=== PATIENT | female | born 1940 | race Caucasian/White ===

== ENCOUNTER 2024-12-15 10:05 | Outpatient (CLI) | payer MEDICARE, BC, SELFPAY | END 2024-12-15 10:06 | disposition home or self-care (01) | LOC: INJ CL 10:06 | PROVIDERS: PCP Family Medicine; Visit Provider Family Medicine | DX: M54.16 Radiculopathy, lumbar region (principal); M51.369 Other intervertebral disc degeneration, lumbar region without mention of lumbar back pain or lower extremity pain | CPT/HCPCS: 64483; J1100; J1644; J2003; Q9966 ==

== ENCOUNTER 2025-02-16 07:45 | Outpatient (CLI) | payer MEDICARE, BC, SELFPAY | END 2025-02-16 07:46 | disposition home or self-care (01) | PROVIDERS: PCP Family Medicine; Visit Provider Family Medicine | DX: M54.16 Radiculopathy, lumbar region (principal); M51.369 Other intervertebral disc degeneration, lumbar region without mention of lumbar back pain or lower extremity pain | CPT/HCPCS: 64483; Q9966 ==

== ENCOUNTER 2025-03-26 10:13 | Outpatient (CLI) | payer MEDICARE, BC, SELFPAY ==
--- NOTE | 2025-03-26 10:15 | CRLHL7_ITS ---
For Patients: As a result of the Cures Act, medical imaging exams and procedure reports are released immediately into your electronic medical record. You may view this report before your referring provider. If you have questions, please contact your health care provider. INDICATION: Elevated Alkaline Phosphates COMPARISON: none TECHNIQUE: Real time villegas scale imaging and color Doppler analysis was performed of the right upper quadrant. FINDINGS: The patient`s liver is of normal size and has uniform echogenicity. Normal IVC. The aorta is obscured by bowel gas. The gallbladder is of normal size and there is an echogenic and shadowing stone within the gallbladder lumen which measures 2.0 cm. Other smaller stones are also present. The gallbladder wall measures 3 mm in thickness. The common bile duct is of normal size and measures 5 mm in diameter at the level of the mela hepatis. The pancreas is not well visualized due to overlying bowel gas. There is no evidence of a stone or hydronephrosis within the right kidney. The right kidney measures 11.8 cm in length. Multiple simple right renal cysts measure up to 2.7 x 2.7 x 2.6 cm. IMPRESSION: Cholelithiasis. Dictated by Silverio Josue MD @ 03/26/2025 12:10:18 PM (Electronically Signed)
== END 2025-03-26 10:14 | disposition home or self-care (01) ==
PROVIDERS: PCP Family Medicine; Visit Provider Family Medicine
DX: R74.8 Abnormal levels of other serum enzymes (principal); K80.20 Calculus of gallbladder without cholecystitis without obstruction
CPT/HCPCS: 76705